=== PATIENT | female | born 2000 | race Caucasian/White ===

== ENCOUNTER 2024-10-23 22:45 | Emergency (ER) | payer MEDICAID, SELFPAY ==
[2024-10-23 22:55] VITALS: BP 123/76; PULSE 76; RESP 16; TEMP 36.3; O2SAT 97; BMI 22.9
--- NOTE | 2024-10-23 23:28 | ED_ITS ---
HPI - General Adult General Chief complaint: Nausea/Vomiting Stated complaint: Diarrhea, vomiting Time Seen by Provider: 10/23/24 23:26 History of Present Illness HPI narrative: Arrives with complaints of N /V/D that started today after beginning to take a medication prescribed by her PMD for heart issues. She is unsure of the name of the medication. Also complaining of 9/10 abdominal pain that she locates all over her abdomen. Alert and oriented, ABCs intact. 24-year-old young woman presenting to the emergency department Begins by noting that whenever she feels her heart transferring blood somewhere she gets tense all over. Has been having 2 weeks of chest pain for which her doctor apparently prescribed her an ?antibiotic?. Clarification that this is Carafate. She denies a history of heartburn. She continues to have chest pain all over and this has been going on for 2 weeks. Has developed all over abdominal pain that seems to coincide with vomiting and diarrhea today. She has had some hematochezia. She feels that she needs an EKG at this point. 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 Related Data Home Medications ?Medication ?Instructions ?Recorded ?Confirmed No Known Home Medications 10/23/2409/27 Allergies Allergy/AdvReac Type Severity Reaction Status Date / Time No Known Drug Allergies Allergy Verified 10/23/24 22:53 Review of Systems Status of ROS: Reports: 6 or more systems reviewed and unremarkable except as noted in History and below [facility] Social History Smoking Status: Unknown if ever smoked Do you use any of these nicotine containing products: None Second hand tobacco smoke exposure: No Non-prescribed substance use: denies use service: No Exam Narrative: Exam Narrative: Appears a little tired. Wearing scrubs. Skin is warm and dry. Well-perfused. No edema. Lungs are clear. Heart in regular rate and rhythm. Diffusely tender but soft abdomen. No peritoneal signs. Const: Vital Signs, click to edit/add: Vital Signs - 24 hr 10/23/24 22:55 Temperature 97.3 F L Pulse Rate [Pulse Oximeter] 76 Respiratory Rate 16 Blood Pressure [Ri ght Upper Arm] 123/76 Pulse Oximetry 97 Oxygen Delivery Me thod Room Air Documenting provider has reviewed patient's vital signs: yes Course Vital Signs Vital signs: Initial Vital Signs Temperature 97.3 F L 10/23/24 22:55 Temperature Source Temporal Artery Scan 10/23/24 22:55 Pulse Rate 76 10/23/24 22:55 Respiratory Rate 16 10/23/24 22:55 Blood Pressure 123/76 10/23/24 22:55 Blood Pressure Mean 91 10/23/24 22:55 Pulse Oximetry 97 10/23/24 22:55 Oxygen Delivery Method Room Air 10/23/24 22:55 Vital Signs Temperature 97.3 F L 10/23/24 22:55 Pulse Rate 76 10/23/24 22:55 Respiratory Rate 16 10/23/24 22:55 Blood Pressure 123/76 10/23/24 22:55 Pulse Oximetry 97 10/23/24 22:55 Oxygen Delivery Method Room Air 10/23/24 22:55 Temperature 97.3 F L 10/23/24 22:55 Pulse Rate 76 10/23/24 22:55 Respiratory Rate 16 10/23/24 22:55 Blood Pressure 123/76 10/23/24 22:55 Pulse Oximetry 97 10/23/24 22:55 Oxygen Delivery Method Room Air 10/23/24 22:55 Medical Decision Making MDM Narrative Medical decision making narrative: Clarifying expectations I think primary need is to confirm that is in normal heart rhythm. She has declined other cares. Otherwise appears to be in usual state of health. Therefore did request EKG. Looks WNL as below. Otherwise vitally well. See patient discharge plan for further discussion Sounds like you and your doctor know each other fairly well. I guess I would follow-up with them for further recommendations. For the diarrhea as long as you are not experiencing a fever, you might try some loperamide if needed, which is available [id number]. Return for marked increase in persistent pain, increasing shortness of breath. ECG Data Attestation: I personally reviewed and interpreted this ECG as follows: (Normal sinus at rate of 75) Discharge Plan Discharge Clinical Impression: Atypical chest pain, Abdominal pain, Irritable bowel Patient Disposition: Home, Self-Care Condition: Stable Additional Instructions: Sounds like you and your doctor know each other fairly well. I guess I would follow-up with them for further recommendations. For the diarrhea as long as you are not experiencing a fever, you might try some loperamide if needed, which is available [id number]. Return for marked increase in persistent pain, increasing shortness of breath. Activity Level: No Restrictions Discharge Diet: Regular Prescriptions: No Action No Known Home Medications Follow Up/Referrals: Cayla Pitt CNP [Primary Care Provider, Family Practice] Stand Alone Forms: [employer] Info Instructions Discharge Comment: Pt walked out after talking with doctor, did not receive her discharge paperwork.
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
--- OUTSIDE RECORDS SUMMARY | 2024-10-24 00:01 | XMS_ITS | Patient Health Record ---
Author Organization [facility] [place] Address [address] [place], [place] [id number] Care Team Providers Care Paddock Judge Name Role Phone Malcom Jamal Primary Care Provider [phone] Jamal العراقي Unavailable Unavailable Reason For Referral No Information Medications Medication SIG (Take, Route, Frequency, Duration) Notes Start Date End Date Status Claritin 10 MG 1 tablet Orally Once a day for 30 day(s) Active Asmanex Twisthaler 1 tab Oral for 14 days Active Vitamin D 1000 UNIT 1 tablet Orally Once a day for 30 day(s) Active Albuterol Sulfate HFA 108 (90 Base) MCG/ACT 2 puffs as needed Inhalation every 6 hrs Active Singulair 10 MG 1 tablet Orally Once a day for 30 day(s) Active Focalin XR 15 MG 1 capsule in the mor sedrick Orally Once a day Active Social History Tobacco Use: Social History Observation Description Date Details (start date - stop date) Never Smoker NA - NA Smoking: Question Answer Notes Are you a: Non-smoker Plan Of Treatment No Information Insurance Providers Payer Name Payer Address Payer Phone Subscriber Number Group Number Insured Name Patient Relationship to Insured Coverage Start Date Coverage End Date [employer] [address] [place] [address] [phone] [id number] Darryl Santo Self - patient is the insured Medical (General) History Medical History History ICD Code asthma
--- OUTSIDE RECORDS SUMMARY | 2024-10-24 00:01 | XMS_ITS | Clinical Summary ---
Author Organization [facility] [facility] Address [address] [place] [address] Care Team Providers Care Medicare Specialist Name Role Phone SweetiePrateekCayla NP Primary Care Provider Allergies Active Allergy Reactions Criticality Noted Date Comments Latex Rash 05/10/2023 Patient reports unsure if the rash was caused by latex in contraceptive device Pollen Extracts *Unknown,Cough 06/01/2023 Medications albuterol HFA (PRO-AIR; VENTOLIN; PROVENTIL) 90 mcg/actuation inhaler Inhale 2 Puffs by mouth every 4 hours if needed for Shortness Of Breath or Wheezing. Active loratadine (Claritin) 10 mg tablet Take 10 mg by mouth once daily. Active docusate sodium (COLACE ORAL) Take 1 Tablet by mouth once daily. Active ondansetron (ZOFRAN ODT) 4 mg disintegrating tabletIndications: Vomiting, unspecified vomiting type, unspecified whether nausea present Place 1 Tablet (4 mg) on the tongue every 8 hours if needed for Nausea/Vomitin g. 10 Tablet 04/30/20 24 Active wheat dextrin (BENEFIBER CLEAR SF, DEXTRIN, ORAL) Take 1 Dose by mouth once daily. Active traZODone (DESYREL) 50 mg tabletIndications: Insomnia, unspecified type Take 1 Tablet (50 mg) by mouth at bedtime. 31 Tablet 1 07/09/19 25 Active Arnuity Ellipta 100 mcg/actuation inhaler Inhale 1 Puff by mouth. 03/05/20 Active fluticasone (50 mcg per actuation) nasal solution (FLONASE) shake liquid and use 2 sprays in each nostril daily 03/05/20 Active melatonin 5 mg tab tablet Take 5 mg by mouth once daily if needed. 03/05/20 Active montelukast 10 mg tablet Take 10 mg by mouth at bedtime if needed. 03/05/20 025 Active sennosides-docusat e (8.6-50 mg) tablet Take 2 Tablets by mouth two times daily. 03/05/20 Active famotidine 20 mg tabletIndications: Periumbilical abdominal pain Take 1 Tablet (20 mg) by mouth 2 times daily if needed for GI Upset. 60 Tablet 2 09/07/19 25 Active FLUoxetine 40 mg capsuleIndications :MDD (major depressive disorder), recurrent severe, without psychosis (HC) Take 1 Capsule (40 mg) by mouth once daily in the morning. 90 Capsule 1 09/18/19 25 Active FLUoxetine 20 mg capsuleIndications :MDD (major depressive disorder), recurrent severe, without psychosis (HC),PTSD (post-traumatic stress disorder) Take 1 Capsule (20 mg) by mouth once daily in the morning. Take along with the 40mg cap for a total daily dose of 60mg daily 30 Capsule 1 09/18/19 25 Active prazosin 1 mg capsuleIndications :Nightmares Take 1 cap by mouth at bedtime for 3 nights, if tolerating well, raise dose to 2mg at bedtime 60 Capsule 1 09/18/19 25 Active sucralfate (Carafate) 1 gram tabletIndications: Acute gastritis, presence of bleeding unspecified, unspecified gastritis type Take 1 Tablet (1 g) by mouth three times daily before meals for 10 days. 30 Tablet 10/23/19 25 025 Active oxyCODONE 5 mg immediate release tabletIndications: Low back pain with bilateral sciatica, unspecified back pain laterality, unspecified chronicity Take 1 Tablet (5 mg) by mouth every 6 hours if needed (breakthrough pain). 12 Tablet 08/15/19 025 Discontinu ed(*Med complete/R egimen complete/L evel of care change) cyclobenzaprine 10 mg tabletIndications: Low back pain with bilateral sciatica, unspecified back pain laterality, unspecified chronicity Take 1 Tablet (10 mg) by mouth every 8 hours if needed for Muscle Spasm. 15 Tablet 09/07/19 25 025 Discontinu ed(*Med complete/R egimen complete/L evel of care change) dexmethylphenidate xR (Focalin XR) 15 mg capsuleIndications :Attention deficit hyperactivity disorder (ADHD), combined type Take 1 Capsule (15 mg) by mouth once daily. 30 Capsule 09/24/19 025 Hospital, Clinic, or Other Facility Administered Medication Ordered Dose Route Frequency Start Date End Date Status levonorgestrel (MIRENA) 21 mcg/24 hours (8 yrs) 52 mg intrauterine device (IUD) 1 DeviceIndications:Abnormal uterine bleeding (AUB) 1 Device IU Q 8 YEARS 06/08/2024 Ac tive Active Problems Problem Noted Date Diagnosed Date Hemorrhoids, internal 09/20/2024 PTSD (post-traumatic stress disorder) 08/13/2024 Liver lesion 08/09/2024 Overview (08/09/2024): F/u MRI liver in mid October 2024. 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 06/07/2024 Cervical cancer screening 05/27/2024 Overview (09/20/2024): 04/2024 UNS 07/2024 UNS/HPV negative Provider Plan: colposcopy Adjustment disorder with mixed emotional feature s 01/25/2023 BV (bacterial vaginosis) 01/19/2023 S/P section 01/19/2023 Overview (01/19/2023): E coli bacteremia POD#1 11/2022 MDD (major depressive disord er), recurrent severe, without psychosis 01/19/2023 ADHD 01/19/2023 Autism spectrum disorder 01/19/2023 Severe episode of recurrent major depressive disorder, without psychotic features 01/19/2023 Overview (05/16/2023): Patient was hospitalized 01/19/23-01/23/23-started on Paxil Anxiety 02/07/2022 Overview (05/16/2023): Zoloft 100 mg daily Mild intermittent asthma 01/19/2017 Seasonal allergies 01/19/2017 Autism spectrum disorder 01/19/2017 Acute adjustment disorder wi mixed anxiety and depressed mood Resolved Problems Problem Noted Date Diagnosed Date Resolved Date Autism spectrum disorder 05/08/2023 Encounters Date Type Department Care Team Description 10/22/2024 12:50 PM CDT Office Visit [facility] [address] [place] [address] Cayla Pitt NP Chest Pain (Chest pain for 2 weeks ) 10/22/2024 Travel 10/19/2024 Travel 10/17/2024 Travel 10/15/2024 1:00 PM CDT Office Visit [facility] [address] [place] [address] Jarrett Amos, [facility] Mental Health Consultants Visit 10/15/2024 9:30 AM CDT - 10/15/2024 11:59 PM CDT Hospital Encounter [facility] [address] [place] [address] Cayla Pitt NP Helms, Colleen G, PT 10/15/2024 Travel 10/09/2024 8:00 AM CDT - 10/09/2024 11:59 PM CDT Hospital Encounter [facility] and [facility] [address] [place] [address] Cayla Pitt NP Helms, Colleen G, PT 10/09/2024 Travel 10/01/2024 8:45 AM CDT - 10/01/2024 11:59 PM CDT Hospital Encounter [facility] [address] [place] [address] Cayla Pitt NP Guildner, Ryan, PTA 10/01/2024 Travel 09/29/2024 Telephone [facility] [address] [place] [address] Cayla Pitt NP Screening (Spine Clinic) 09/27/2024 10:58 AM CDT - 09/27/2024 11:59 PM CDT Hospital Encounter [facility] [address] [place] [address] Cayla Pitt NP Lumbar pain 09/27/2024 Orders Only [facility] [address] [place] [address] Cayla Pitt NP <No scans attached> 09/27/2024 Travel 09/26/2024 Telephone [facility] [address] [place] [address] Jarrett Amos, [employer]ATION 09/25/2024 10:15 AM CDT Office Visit [address] [address] Arielle Flores PsyD, Mental Health Intake 09/25/2024 Travel 09/23/2024 7:30 AM CDT Office Visit [facility] [address] [place] [address] Tila Brown NP Follow Up; Medication Management 09/23/2024 Telephone [facility] [address] [place] [address] Tila Brown NP Medication Management (Pharmacy and medication) 09/23/2024 Travel 09/20/2024 10:10 AM CDT Office Visit [address] [address] Cayla Pitt NP Follow Up (Follow up on back pain and abdominal issues ) 09/20/2024 Travel 09/19/[address] [address] Meche Rooney, Results 09/17/2024 1:00 PM CDT Office Visit [facility] [address] [place] [address] Jarrett Amos, [facility] Mental Health Consultants Visit 09/17/2024 8:44 AM CDT - 09/17/2024 11:59 PM CDT Hospital Encounter [facility] and [facility] [address] [place] [address] Cayla Pitt NP Guildner, Ryan, WILI 09/17/2024 Telephone [facility] [address] [place] [address] Tila Brown NP Follow Up 09/17/2024 Travel 09/15/2024 Travel 09/13/2024 Orders Only [address] [address] Meche Rooney, <No scans attached> 09/13/[address] [address] Meche Rooney, Pap Plan 09/12/2024 9:00 AM CDT Office Visit [facility] [address] [place] [address] Tila Brown NP Medication Management; Follow Up 09/12/2024 Travel 09/10/2024 1:00 PM CDT Nutrition/Dietici an [facility] [address] [place] [address] Medical Nutrition Therapy 09/10/2024 8:45 AM CDT - 09/10/2024 11:59 PM CDT Hospital Encounter [facility] and [facility] [address] [place] [address] Cayla Pitt, Robin Washington, GEAR REPAIR SUPERVISOR 09/10/2024 Travel 09/06/2024 11:00 AM CDT Office Visit [facility] [address] [place] [address] Eva Levy, [facility] Mental Health Consultants Visit 09/06/2024 9:30 AM CDT Office Visit [facility] [address] [place] [address] Cayla Pitt NP Constipation (Follow up) 09/06/2024 Travel 09/03/2024 12:15 PM CDT - 09/03/2024 11:59 PM CDT Hospital Encounter [facility] [address] [place] [address] Cayla Pitt, JUDY Vega, Adelaida Cline, PT 09/03/[address] [address] Tila Brown NP Refill Request ([facility] did not state which medications) 09/03/2024 Telephone [facility] [address] [place] [address] Mundo Haywood MD 09/02/2024 7:47 PM CDT - 09/03/2024 12:44 AM CDT Emergency [facility] [address] [place] [address] Mundo Haywood MD Ran, Renzhong, MD Chronic constipation (Primary Dx); Hepatic lesion; Bladder wall thickening Discharge Disposition: Home Self Care 09/02/2024 7:15 PM CDT Office Visit [facility] [address] [place] [address] Desirae Trujillo MD Abdominal Pain (no BM x 7 days/have tried OTC with no relief); rectal bleeding (x 3 weeks) 09/02/2024 Travel 08/29/2024 Nurse Triage [address] [place] [address] Cayla Pitt NP Constipation 08/28/2024 10:00 AM CDT - 08/28/2024 11:59 PM CDT Hospital Encounter [facility] [address] [place] [address] Meche Rooney DO Abnormal vaginal bleeding 08/28/2024 Travel 08/26/2024 1:00 PM CDT Office Visit [address] [place] [address] Meche Rooney DO Menstrual Problem (Bleeding with IUD ) 08/26/2024 9:22 AM CDT - 08/26/2024 11:59 PM CDT Hospital Encounter [facility] [address] [place] [address] Cayla Pitt NP Helms, Colleen G, PT Strain of lumbar region, initial encounter 08/26/2024 Orders Only [facility] [phone] Meche Rooney DO Lab 08/26/2024 Travel 08/23/2024 11:30 AM CDT Ancillary Procedure [address] [place] [address] 08/23/2024 10:50 AM CDT Office Visit [address] [place] [address] Cayla Pitt NP Follow Up (Back pain ); Concerns (Abdominal bloating/ pain) 08/22/2024 Travel 08/16/2024 10:00 AM CDT Office Visit [place] [address] [place] [address] Eva Levy, [facility] Mental Health Consultants Visit 08/16/2024 Orders Only [facility] [address] [place] [address] Cayla Pitt NP Lab 08/16/2024 Orders Only [facility] [address] [place] [address] Cayla Pitt NP <No scans attached> 08/16/2024 Travel 08/14/2024 10:41 PM CDT - 08/14/2024 11:14 PM CDT Emergency [facility] [address] [place] [address] Juan Antonio Pelayo DO Low back pain with bilateral sciatica, unspecified back pain laterality, unspecified chronicity (Primary Dx) Discharge Disposition: Home Self Care 08/14/2024 11:15 AM CDT Orders Only [address] [address] Lab, [facility] 08/14/[address] [address] Cayla Pitt NP Imaging 08/14/2024 Travel 08/13/2024 11:00 AM CDT Office Visit [facility] [address] [place] [address] Tila Brown NP Mental Health Intake (Medication Consult, Establish care) 08/13/2024 Travel 08/09/2024 8:50 AM CDT Office Visit [address] [address] Cayla Pitt NP Follow Up (Bleeding continues) 08/09/2024 Travel 08/07/2024 Telephone [facility] [address] [place] [address] Tila Brown NP Pre-Visit Intake 08/05/2024 11:00 AM CDT Office Visit [facility] [address] [place] [address] Eva Levy, [facility] Mental Health Consultants Visit 08/05/2024 Travel 08/05/2024 Refill [facility] [address] [place] [address] Daphney Sapp, JUDY Refill Request (Trazodone) 07/26/2024 1:44 PM INSERTER OPERATOR - 07/26/2024 11:59 PM INSERTER OPERATOR Hospital Encounter [facility] [address] [place] [address] Cayla Pitt NP Abdominal pain, generalized 07/26/2024 Travel from Last 3 Months Immunizations Immunization Administration Dates Next Due COVID-19 VACCINE SPIKEVAX (M ODERNA 50MCG/0.5ML) 12YO+ PFS 04/21/2023 COVID-19 vaccine (Moderna 50 mcg/0.5mL) 12YO+ BIVALENT PF, MDV 03/05/2024 COVID-19 vaccine (Pfizer-Bio NTech 30mcg/0.3mL) PF, MDV 12/08/2020 Dtap Unspecified Formulation 12/07/2007, 11/11/2003,2002,10/18,2002 HPV 9 (Gardasil 9) 04/12/2016 Hepatitis A, Unspecified 09/23/2009,12/07/2007 Hepatitis B, Unspecified 11/11/2003,2002 Hib Conjugate, Unspecified 11/11/2003,2002 ,2002 Human Papilloma Virus Vaccine 12/29/2014, 015 Human Papilloma Virus Vaccin e, Unspecified 04/12/2016,12/29/2014,10/02/2014 INFLUENZA, IIV3 PF (AGE >= 6 MO) 03/05/2024 Inactivated Polio Vaccine 12/07/2007,06/2003,2002,08/19 Influenza Virus, Unspecified 02/14/2019, 04/12/2016,04/27/2015,03/12,04/04/2012 Influenza, IIV4 02/21/2023,,03/25/2021,02/28,02/22/2017 MMR 12/07/2007,06/30/2003 Meningococcal B 12/21/2020,10/17/2018 Meningococcal Vaccine (Menactra) 10/17/2018,02/26 Pneumococcal Conj 20-valent (Prevnar 20) 11/01/2021 Pneumococcal conj 7-Valent (Prevnar 7) 0 11/11/2003,2002,2002,08/19 Polio Virus, Unspecified 12/07/2007,06/2003,2002,08/19 Tdap 10/06/2022,03/12/2014 Varicella Vaccine 12/07/2007,06/30/2003 Social History Tobacco Use Types Packs/Day Years Used Date Smoking Tobacco: Never Passive Smoke Exposure: Past Smokeless Tobacco: Never Tobacco Cessation:Counseling Given: Yes Alcohol Use Standard Drinks/Week Comments Not Currently 0 (1 standard drink = 0.6 oz pur e alcohol) PHQ-2 Answer Date Recorded PHQ-2 TOTAL SCORE 6 09/26/2024 Social Connections Answer Date Recorded Do you often feel lonely or isolated from those around you? 0 06/24/2024 Alcohol Use Answer Date Recorded How often do you have a drink containing alcohol ? 0 05/16/2023 How many drinks containing a lcohol do you have on a typical day when you are drinking? 0 05/16/2023 How often do you have five or more drinks on one occasion? 0 05/16/2023 Financial Resource Strain Answer Date R ecorded Difficulty of Paying Living Expenses 3 06/24/2024 Difficulty of Paying Living Expenses Not on file 06/24/2024 Food Insecurity Answer Date Recorded Do you worry your food will run out before you are able to buy more? 1 06/24/2024 Transportation Needs Answer Date Record ed Does lack of transportation keep you from medica l appointments? 1 06/24/2024 Does lack of transportation keep you from work, meetings or getting things that you need? 1 06/24/2024 Housing Stability Answer Date Recorded What is your housing situation today? 1 06/24/2024 Interpersonal Safety Answer Date Record ed Are you being hit, kicked, p ushed or yelled at (see row info)? No 09/02/2024 Interpersonal Safety Abuse 12 - 18 Not on file 09/02/2024 Interpersonal Safety Ambulatory Vulnerability No t on file 09/02/2024 Utilities Answer Date Recorded Do you have trouble paying f or utilities (for example, heat, electricity, water, phone)? 1 06/24/2024 Comments No Sex and Gender Information Value Date Recorded Sex Assigned at Female 06/24/2024 4:45 PM INSERTER OPERATOR Legal Sex Female 5:17 PM CDT Gender Identity Female 06/24/2024 4:45 PM INSERTER OPERATOR Sexual Orientation Not on file Obstetrics History Para Term AB IAB SAB Ectopic Multiple Livin g Live Births 1 1 1 1 1 Date Outcome GA Total Labor Labor/2nd/3rd Weight Sex Type Anes PTL Quita A1 A5 Name Clin 2022 Term 37w 5d 2.8 kg (6 lb 2.8 oz) F CS-LT ranv Epidu ral,G enera l Livin g 6 9 CASTRO ,GIRL [facility] Que Hazel M.D., M.H.A. Complications:Intraamniotic Infection Delivery Location:[facility] ([facility] 03 [facility]) Last Filed Vital Signs Vital Sign Reading Time Taken Comments Blood Pressure 100/48 10/22/2024 1:02 PM CDT Pulse 88 10/22/2024 1:02 PM CDT Temperature 37 C (98.6 F) 09/02/2024 7:57 PM CDT Respiratory Rate 18 09/02/2024 7:57 PM CDT Oxygen Saturation 98% 09/02/2024 11:27 PM CDT Inhaled Oxygen Concentration - - Weight 63 kg (138 lb 14.4 oz) 10/22/2024 1:02 PM CDT Height 165.1 cm (5' 5) 09/02/2024 7:56 PM CDT Body Mass Index 23.11 09/02/2024 7:56 PM CDT Plan of Treatment Upcoming Encounters Date Type Department Care Team (Late st Contact Info) Description 10/24/2024 9:30 AM CDT Office Visit [address] [place] [address] Jaky Boyd PA [address] [place] [address] 10/24/2024 11:00 AM CDT Office Visit [facility] [address] [place] [address] Sergio Carr MD [address] [place] [address] 10/28/2024 10:15 AM CDT Appointment [facility] [address] [place] [address] 10/29/2024 9:30 AM CDT Appointment [facility] [address] [place] [address] Robin Begum, [facility] [address] [address] 10/30/2024 11:00 AM CDT Office Visit [facility] [address] [place] [address] Arielle Flores, PsyD, LP [address] [place] [address] 10/31/2024 9:05 AM CDT Office Visit [facility] Orthopedic[facility] Podiatry [facility] [address] [address] Jayme Prescott MD [address] [place] [address] 11/05/2024 9:30 AM CDT Appointment [facility] [address] [place] [address] Robin Begum, GEAR REPAIR SUPERVISOR [address] [place] [address] 11/08/2024 8:15 AM CDT Procedure Only [address] [address] Meche Rooney DO [address] [place] [address] 11/11/2024 7:30 AM CDT Office Visit [facility] [address] [place] [address] Tila Brown NP [address] [place] [address] 11/12/2024 9:30 AM CDT Appointment [facility] [address] [place] [address] Robin Begum, GEAR REPAIR SUPERVISOR [address] [address] 11/13/2024 10:15 AM CDT Office Visit [address] [address] Arielle Flores PsyD, [address] [address] 11/14/2024 9:00 AM CDT Office Visit [facility] [address] [place] [address] Sergio Carr MD [address] [place] [address] 11/19/2024 9:30 AM CDT Appointment [facility] [address], [place] [address] Adelaida Vega, PT [address], [place] [address] 11/25/2024 11:10 AM CDT Office Visit [address] [address] Cayla Pitt, JUDY [address] [place] [address] 11/26/2024 9:30 AM CDT Appointment [facility] [address] [place] [address] Robin Begum, GEAR REPAIR SUPERVISOR [address] [place] [address] 12/02/2024 9:30 AM CDT Appointment [facility] [address] [place] [address] 12/03/2024 9:30 AM CDT Appointment [facility] [address] [place] [address] Robin Begum, GEAR REPAIR SUPERVISOR [address] [place] [address] 12/04/2024 12:00 PM CDT Office Visit [address] [address] Arielle Flores PsyD, LP [address] [place] [address] 12/10/2024 9:30 AM CDT Appointment [facility] [address] [place] [address] [place] [address] Robin Begum, GEAR REPAIR SUPERVISOR [address] [place] [address] 12/17/2024 9:30 AM CDT Appointment [facility] [address] [place] [address] Adelaida Vega, PT [address] [place] [address] Health Maintenance Due Date Last Done Comments Hepatitis B series for 19+ (3 of 3 - 3-dose series) 01/06/2004 11/11/2003, 2002 HIV for age 15-65 2017 Hepatitis C screening for age 18-79 2020 COVID-19 vaccine series (2023- season) 2024 03/05/2024, 03/05/2024, 04/21/2023, Additional history exists BMI (ht and wt on same day) for age 18+ 08/09/2025 08/09/2024, 06/07/2024, 05/11/2023, Additional history exists Chlamydia for age 16-24 08/26/2025 08/27/19 25, 05/09/2024, 05/24/2023, Additional history exists Depression screening for age 12+ 09/29/2025 09/29/2024, 09/27/2024, 09/26/2024, Additional history exists Pap test for age 21-65 08/27/2027 08/26/2024, 2023 Tetanus booster 10/06/2032 10/06/2022, 03/12/2014 HPV series for age 9-26 Completed 04/12/20 16, 04/12/2016, 12/29/2014, Additional history exists Pneumococcal series for age 6-49 Aged Out 11/01/2021, 11/11/2003, 2002, Additional history exists No longer eligible based on patient's age to complete this topic Tdap Completed 10/06/2022, 03/12/2014 Influenza Vaccine Completed 03/05/2024, , 05/26/2022, Additional history exists Procedures Procedure Name Priority Date/Time Associated Diagnosis Comments MR SPINE LUMBAR WO Routine 09/27/2024 11 :32 AM CDT Lumbar pain AMB CONSULT TO GASTROENTEROLOGY STEFAN 09/16/2024 8:32 PM CDT Abdominal pain, generalized Chronic constipation Rectal bleeding Mucus in stool SCAN-COLONOSCOPY 09/16/2024 11:[address] ABDOMEN PELVIS W STAT 09/02/2024 9 :11 PM CDT URINE STAT 09/02/2024 8:50 PM CDT UA W/ SEDIMENT EXAM REFLEXED PER CRITERIA STAT 09/02/2024 8:50 PM CDT CBC WITH AUTO DIFFERENTIAL STAT 09/02/2024 8:21 PM CDT HEPATIC FUNCTION PANEL STAT 8:21 PM CDT LIPASE STAT 09/02/2024 8:21 PM CDT BASIC METABOLIC PANEL STAT 09/02/2024 8:21 PM CDT CBC WITH AUTO DIFFERENTIAL STAT 09/02/2024 8:21 PM CDT US PELVIS COMPLETE TA AND TV Routine 08/28/2024 10:51 AM CDT Abnormal vaginal bleeding HPV HIGH RISK Routine 08/26/2024 2:02 PM CDT Pap smear of cervix unsatisfactory URINE Routine 08/26/2024 1:30 PM CDT Abnormal vaginal bleeding HYDRAULIC BLOCKER THIN PREP PAP SCREEN IMAGED- Unsuccessful Attempt Routine 08/26/2024 1:20 PM CDT Pap smear for cervical cancer screening GC CHLAMYDIA TRACH PROBE Routine 08/26/2024 1:20 PM CDT Abnormal vaginal bleeding TRICHOMONAS, PAO, AND BACTERIAL VAGINOSIS BY SAMSON Routine 08/26/2024 1:20 PM CDT Abnormal vaginal bleeding XR SPINE LUMBAR 3 VIEWS Routine 08/24/19 11:43 AM CDT Strain of lumbar region, initial encounter OCCULT BLOOD IFOBT STOOL Routine 08/16/2024 10:16 PM CDT Rectal bleeding URINE CULTURE STEFAN 08/14/2024 10:50 PM CDT URINALYSIS MICROSCOPIC STAT 10:50 PM CDT URINE STAT 08/14/2024 10:50 PM CDT UA W/ SEDIMENT EXAM REFLEXED PER CRITERIA STAT 08/14/2024 10:50 PM CDT STOOL PATHOGEN MULTIPLEX PCR PANEL Routine 08/13/2024 10:34 AM CDT Rectal bleeding CT ABDOMEN PELVIS W Routine 07/26/2024 2 :18 PM INSERTER OPERATOR Abdominal pain, generalized from Last 3 Months Results * MR SPINE LUMBAR WO (09/27/2024 11:32 AM CDT) Anatomical Region Laterality Modality Spine, LUMBAR SPINE Magnetic Res onance 09/27/2024 12:2 7 PM CDT Narrative 09/27/2024 12:27 PM CDT For Patients: As a result of the Century Cures Act, medical imaging exams and procedure reports are released immediately into your electronic medical record. You may view this report before your referring provider. If you have questions, please contact your health care provider. Indication: Lumbar pain. Technique: Multiplanar multisequence noncontrast MR images of the lumbar spine. Comparison: Lumbar spine radiographs 08/23/2024. Findings: Slight leftward lumbar curvature. The lumbar lordosis is preserved. Vertebral heights are maintained. No acute fracture or spondylolisthesis. No T1 hypointense lesions or marrow edema. Normal conus terminates at L1. T12-L1 through L3-4: No spinal canal or neural foraminal narrowing. L4-5: Shallow disc bulge. Minimal facet arthropathy. Minimal spinal canal narrowing. Mild narrowing of the lateral recesses. No neural foraminal narrowing. L5-S1: Shallow disc bulge. Minimal facet arthropathy. Minimal spinal canal and lateral recess narrowing. No neural foraminal narrowing. Impression: 1. Mild lumbar spondylosis without spinal canal or neural foraminal stenosis. 2. Mild narrowing of the lateral recesses at L4-5. 3. Slight leftward lumbar curvature. Dictated by Bakari Ramos MD @ 09/27/2024 12:27:00 PM (Electronically Signed) Procedure Note Bakari Ramos MD - 09/27/2024 For Patients: As a result of the Cures Act, medical imagingexams and procedure reports are released immediately into your electronicmedical record. You may view this report before your referring provider.If you have questions, please contact your health care provider. Indication: Lumbar pain. Technique: Multiplanar multisequence noncontrast MR images of the lumbar spine. Comparison: Lumbar spine radiographs 08/23/2024. Findings: Slight leftward lumbar curvature. The lumbar lordosis is preserved.Vertebral heights are maintained. No acute fracture or spondylolisthesis.No T1 hypointense lesions or marrow edema. Normal conus terminates atL1. T12-L1 through L3-4: No spinal canal or neural foraminal narrowing. L4-5: Shallow disc bulge. Minimal facet arthropathy. Minimal spinal canalnarrowing. Mild narrowing of the lateral recesses. No neural foraminalnarrowing. L5-S1: Shallow disc bulge. Minimal facet arthropathy. Minimal spinal [place] lateral recess narrowing. No neural foraminal narrowing. Impression: 1. Mild lumbar spondylosis without spinal canal or neural foraminalstenosis. 2. Mild narrowing of the lateral recesses at L4-5. 3. Slight leftward lumbar curvature. Dictated by Bakari Ramos MD @ 09/27/2024 12:27:00 PM (Electronically Signed) us Cayla Pitt POSTDOCTORAL SCIENTIST MR Final Result * SCAN-COLONOSCOPY (09/16/2024 11:30 AM CDT) Narrative Procedure Note Saba Parekh MD - 09/16/2024 10:53 AM CDT [facility] [id number] [place] [address], [address], [place] [address] Patient Name: Darryl Castro Gender: Female Exam Date: 09/16/2024 Visit Number: [id number] Age: 24 Years 2 Months Date of : 2000 Attending MD: Saba Parekh MD Medical Record#: [id number] ----- Procedure: Colonoscopy Indications: Abdominal pain Rectal bleeding Referring MD: Mikala Quiros POSTDOCTORAL SCIENTIST Primary MD: Cayla Pitt READING PROFESSOR Medications: Admitting Medications: 0.9% Normal Saline at TKO Ondansetron Hydrochloride (Zofran) given 4mg by IV Intra Procedure Medications: Patient received monitored anesthesia care. Complications: No immediate complications Procedure: An examination of the heart and lungs was performed and found to be withinacceptable limits. The patient was therefore deemed a reasonablecandidate for endoscopy and monitored anesthesia care. The risks, benefits and plan of the procedure were discussed with thepatient and/or patient food service sales representatives and all questions were answered. After obtaining informed consent, the patient received monitoredanesthesia care and I passed the scope without difficulty via the rectum to the ileum. The appendiceal orifice and ic valve were identified. The scope wasretroflexed during the examination The quality of the prep was good(Miralax/Gatorade Double Prep). This was a complete examination throughout the entire colon. Findings: Normal finding. Location - ileum - entire colon. Hemorrhoids. Internal hemorrhoids without bleeding. Impression: Internal hemorrhoids Plan Repeat colonoscopy at age 47. We will attempt to contact you at appropriate intervals via U.S. mail. Wemay not be able to find you or contact you at that time, therefore youshould know that the responsibility for following our recommendation restswith you. If you don't hear from us at the time your procedure is due,please contact our office to schedule an appointment. If your contactinformation should change, please contact our office so that we can updateyour records. Electronically signed by: Saba Parekh MD 09/16/2024 Medications: Medication Dose Sig Description PRN Status PRN Reason Comments albuterol sulfate HFA 90 mcg/actuation aerosol inhaler 90 mcg inhale 2puff by inhalation route every 4 - 6 hours as needed N bupropion HCl UNKNOWN take 1 tablet by oral route every day N taking asdirected fluoxetine UNKNOWN take 3 capsule by oral route every day in the morningN taking as directed Allergies: Medication Name Ingredient Reaction Comment NO KNOWN ALLERGIES NO KNOWN DRUG ALLERGIES Vital Signs: Date Time Systolic Diastolic Height Weight BMI 09/16/2024 11:14am 115 60 65 in 134.99 22.50 Race: White Preferred Language: Tunisian cc: Cayla Pitt READING PROFESSOR cc: Mikala Quiros NP [facility] [phone] us Saba Parekh MD OTHER Final Result * CT ABDOMEN PELVIS W (09/02/2024 9:11 PM CDT) Only the most recent of2 resultswithin the time period is included. Anatomical Region Laterality Modality Abdomen, Pelvis, AORTA, LIVER, SPLEEN Computed Tomography 09/02/2024 9:43 PM CDT Impressions 09/02/2024 9:43 PM CDT 1. No bowel obstruction. 2. Mild fullness of the azame-cuahpho-glcq-left renal collecting systems, nonspecific. No obstructing calculi appreciated. Clinical correlation recommended. 3. Questionable minimal bladder wall thickening. Correlate for cystitis. 4. Prominent colonic stool burden. 5. Grossly unchanged hepatic hypodensities, incompletely characterized on this examination. Please note that all CT scans at this facility use dose modulation, iterative reconstruction, and/or weight-based dosing when appropriate to reduce radiation dose to as low as reasonably achievable. Dictated by Etienne Guido MD @ 09/02/2024 9:43:23 PM (Electronically Signed) Narrative 09/02/2024 9:43 PM CDT For Patients: As a result of the Cures Act, medical imaging exams and procedure reports are released immediately into your electronic medical record. You may view this report before your referring provider. If you have questions, please contact your health care provider. INDICATION: Generalized abdominal pain and constipation. Concern for small bowel obstruction. TECHNIQUE: CT abdomen and pelvis acquired with 100 cc Omnipaque 300 IV contrast. COMPARISON: CT abdomen pelvis 07/26/2024. FINDINGS: Lower chest: Unremarkable. Liver: Redemonstrated hepatic hypodensities are grossly unchanged compared to the previous examination. No acute hepatic abnormality. Gallbladder and bile ducts: Unremarkable. Pancreas: Unremarkable. Spleen: Unremarkable. Adrenal glands: Unremarkable. Kidneys: Unchanged regions of linear hypoattenuation within the right kidney, likely reflecting scarring. Mild fullness of the right greater than left renal collecting systems. No urinary calculi are appreciated. GI tract: No bowel obstruction. Prominent colonic stool burden. No suspicious bowel wall thickening. Normal appendix. Vasculature: No abdominal aortic aneurysm. Grossly patent vasculature. Lymph nodes: No suspicious lymphadenopathy. Peritoneum/Abdominal Wall: No ascites or pneumoperitoneum. No acute abdominal wall abnormality. Pelvis: Questionable minimal bladder wall thickening. Left adnexal cyst measuring 4.1 cm grossly unchanged. Intrauterine device grossly in satisfactory position. Bones: No acute abnormality. Procedure Note Etienne Guido MD - 09/02/2024 For Patients: As a result of the Cures Act, medical imagingexams and procedure reports are released immediately into your electronicmedical record. You may view this report before your referring provider.If you have questions, please contact your health care provider. INDICATION: Generalized abdominal pain and constipation. Concern for small bowelobstruction. TECHNIQUE: CT abdomen and pelvis acquired with 100 cc Omnipaque 300 IV contrast. COMPARISON: CT abdomen pelvis 07/26/2024. FINDINGS: Lower chest: Unremarkable. Liver: Redemonstrated hepatic hypodensities are grossly unchanged comparedto the previous examination. No acute hepatic abnormality. Gallbladder and bile ducts: Unremarkable. Pancreas: Unremarkable. Spleen: Unremarkable. Adrenal glands: Unremarkable. Kidneys: Unchanged regions of linear hypoattenuation within the rightkidney, likely reflecting scarring. Mild fullness of the right greaterthan left renal collecting systems. No urinary calculi are appreciated. GI tract: No bowel obstruction. Prominent colonic stool burden. Nosuspicious bowel wall thickening. Normal appendix. Vasculature: No abdominal aortic aneurysm. Grossly patent vasculature. Lymph nodes: No suspicious lymphadenopathy. Peritoneum/Abdominal Wall: No ascites or pneumoperitoneum. No acuteabdominal wall abnormality. Pelvis: Questionable minimal bladder wall thickening. Left adnexal cystmeasuring 4.1 cm grossly unchanged. Intrauterine device grossly insatisfactory position. Bones: No acute abnormality. IMPRESSION: 1. No bowel obstruction. 2. Mild fullness of the pmsjv-rutnxdb-osce-left renal collecting systems,nonspecific. No obstructing calculi appreciated. Clinical correlationrecommended. 3. Questionable minimal bladder wall thickening. Correlate for cystitis. 4. Prominent colonic stool burden. 5. Grossly unchanged hepatic hypodensities, incompletely characterized onthis examination. Please note that all CT scans at this facility use dose modulation,iterative reconstruction, and/or weight-based dosing when appropriate toreduce radiation dose to as low as reasonably achievable. Dictated by Etienne Guido MD @ 09/02/2024 9:43:23 PM (Electronically Signed) us Mundo Haywood MD CT Final Result * URINALYSIS W REFLEX MICROSCOPIC IF POSITIVE (09/02/2024 8:50 PM CDT) Only the most recent of2 resultswithin the time period is included. COLOR Yellow Yellow Color 09/02/2024 9:05 PM CDT [facility] CLARITY Clear Clear Clarity 09/02/2024 9:05 PM [facility] SPECIFIC GRAVITY,URINE 1.015 1.010, 1.015, 1.020, 1.025 09/02/2024 9:05 PM [facility] PH,URINE 7.0 6.0, 7.0, 8.0, 5.5, 6.5, 7.5, 8.5 09/02/2024 9:05 PM [facility] UROBILINOGEN, QUALITATIVE Normal Normal EU/dl 09/02/2024 9:05 PM [facility] PROTEIN, URINE Negative Negative mg/dL 09/02/2024 9:05 PM [facility] GLUCOSE, URINE Negative Negative mg/dL 09/02/2024 9:05 PM [facility] KETONES,URINE Negative Negative mg/dL 09/02/2024 9:05 PM [facility] BILIRUBIN,URI NE Negative Negative 09/02/2024 9:05 PM [facility] OCCULT BLOOD,URINE Negative Negative 09/02/2024 9:05 PM [facility] NITRITE Negative Negative 09/02/2024 9:05 PM [facility] LEUKOCYTE ESTERASE Negative Negative 09/02/2024 9:05 PM [facility] Urine URINE SPECIMEN / Unknown Non-Blood / Unknown 09/02/2024 8:50 PM CDT 09/02/2024 9:01 PM CDT us Mundo Haywood MD URINE Final Result [facility] [address] [place] [address] * URINE (09/02/2024 8:50 PM CDT) Only the most recent of3 resultswithin the time period is included. ,URIN E Negative Negative 09/02/2024 9:06 PM T [facility] Urine URINE SPECIMEN / Unknown Non-Blood / Unknown 09/02/2024 8:50 PM CDT 09/02/2024 9:01 PM CDT Mundo Haywood MD URINE Final Result [facility] [address] [place] [address] * (ABNORMAL) CBC WITH AUTO DIFFERENTIAL (09/02/2024 8:21 PM CDT) WHITE BLOOD COUNT 7.9 4.5 - 11.0 thou/cu mm 09/02/2024 8:27 PM T [facility] RED BLOOD COUNT 3.99(L) 4.00 - 5.20 mil/cu mm 09/02/2024 8:27 PM [facility] HEMOGLOBIN 10.8(L) 12.0 - 16.0 g/dL 09/02/2024 8:27 PM [facility] HEMATOCRIT 34.9 33.0 - 51.0 % 09/02/2024 8:27 PM [facility] MCV 88 80 - 100 fL 09/02/2024 8:27 PM [facility] MCH 27.1 26.0 - 34.0 pg 09/02/2024 8:27 PM [facility] MCHC 30.9(L) 32.0 - 36.0 g/dL 09/02/2024 8:27 PM [facility] RDW 14.3 11.5 - 15.5 % 09/02/2024 8:27 PM [facility] PLATELET COUNT 210 140 - 440 thou/cu mm 09/02/2024 8:27 PM [facility] MPV 9.7 6.5 - 11.0 fL 09/02/2024 8:27 PM [facility] % NEUT 59.7 % 09/02/2024 8:27 PM [facility] % LYMPH 27.3 % 09/02/2024 8:27 PM [facility] % MONO 6.7 % 09/02/2024 8:27 PM CDT [facility] % EOS 5.9 % 09/02/2024 8:27 PM CDT [facility] % BASO 0.4 % 09/02/2024 8:27 PM CDT [facility] ABSOLUTE NEUTROPHILS 4.7 1.7 - 7.0 thou/cu mm 09/02/2024 8:27 PM CDT [facility] ABSOLUTE LYMPHOCYTES 2.2 0.9 - 2.9 thou/cu mm 09/02/2024 8:27 PM CDT [facility] ABSOLUTE MONOCYTES 0.5 <0.9 thou/cu mm 09/02/2024 8:27 PM T [facility] ABSOLUTE EOSINOPHILS 0.5(H) <0.5 thou/cu mm 09/02/2024 8:27 PM CDT [facility] ABSOLUTE BASOPHILS 0.0 <0.3 thou/cu mm 09/02/2024 8:27 PM CDT [facility] Blood BLOOD SPECIMEN / Unknown Venipuncture / Unknown 09/02/2024 8:21 PM CDT 09/02/2024 8:24 PM CDT us Mundo Haywood MD HEMATOLOGY Final Result Performing Organization Address City/[facility]/ZIP Co de Phone Number [facility] [address] [place] [address] * LIPASE (09/02/2024 8:21 PM CDT) LIPASE 26.1 13.0 - 60.0 IU/L 09/02/2024 8:43 PM CDT [facility] Blood BLOOD SPECIMEN / Unknown Venipuncture / Unknown 09/02/2024 8:21 PM CDT 09/02/2024 8:24 PM CDT Mundo Haywood MD CHEMISTRY Final Result [facility] [address] [place] [address] * (ABNORMAL) HEPATIC FUNCTION PANEL (09/02/2024 8:21 PM CDT) Pathologist [facility] ALBUMIN 4.3 4.0 - 4.9 g/dL 09/02/2024 8:43 PM CDT [facility] PROTEIN,TOTAL 6.6 6.0 - 8.0 g/dL 09/02/2024 8:43 PM CDT [facility] BILIRUBIN,TOTAL 0.2 0.0 - 1.2 mg/dL 09/02/2024 8:43 PM T [facility] BILIRUBIN,DIRECT 0.1 0.0 - 0.2 mg/dL 09/02/2024 8:43 PM T [facility] BILIRUBIN,INDIRE CT 0.1(L) 0.2 - 0.8 mg/dL 09/02/2024 8:43 PM T [facility] ALK PHOSPHATASE 98 35 - 104 IU/L 09/02/2024 8:43 PM T [facility] ALT (SGPT) 7(L) 10 - 35 IU/L 09/02/2024 8:43 PM T [facility] AST (SGOT) 15 10 - 35 IU/L 09/02/2024 8:43 PM [facility] Blood BLOOD SPECIMEN / Unknown Venipuncture / Unknown 09/02/2024 8:21 PM CDT 09/02/2024 8:24 PM CDT us Mundo Haywood MD CHEMISTRY Final Result [facility] [address] [place] [address] * BASIC METABOLIC PANEL (09/02/2024 8:21 PM CDT) [facility] SODIUM 141 136 - 145 mmol/L 09/02/2024 8:43 PM CDT [facility] POTASSIUM 3.6 3.5 - 5.1 mmol/L 09/02/2024 8:43 PM [facility] CHLORIDE 106 98 - 107 mmol/L 09/02/2024 8:43 PM [facility] CO2,TOTAL 26 22 - 29 mmol/L 09/02/2024 8:43 PM [facility] ANION GAP 9 5 - 18 09/02/2024 8:43 PM [facility] GLUCOSE 89 70 - 99 mg/dL 09/02/2024 8:43 PM [facility] CALCIUM 9.1 8.8 - 10.4 mg/dL 09/02/2024 8:43 PM [facility] Comment: Reference ranges for this test were updated on 04/02/2024 to reflect our healthy population more accurately. Reference range changes are not retroactively applied to results, but previous results using the same methodology can be interpreted in the context of the new reference range. BUN 15 6 - 20 mg/dL 09/02/2024 8:43 PM [facility] CREATININE 0.86 0.50 - 0.90 mg/dL 09/02/2024 8:43 PM [facility] BUN/CREAT RATIO 17 10 - 20 8:43 PM [facility] eGFR >90 >90 mL/min/1.7 3m2 09/02/2024 8:43 PM [facility] Comment:As of 2021, eG FR is calculated by the CKD-EPI creatinine equation without race adjustment. eGFR can be influenced by muscle mass, exercise, and diet. The reported eGFR is an estimation only and is only applicable if the renal function is stable. Blood BLOOD SPECIMEN / Unknown Venipuncture / Unknown 09/02/2024 8:21 PM CDT 09/02/2024 8:24 PM CDT us Mundo Haywood MD CHEMISTRY Final Result [facility] [address] [place] [address] * US PELVIS COMPLETE TA AND TV (08/28/2024 10:51 AM CDT) Anatomical Region Laterality Modality Pelvis Ultrasound 08/28/2024 10:5 9 AM CDT Impressions 08/28/2024 10:59 AM CDT 1. 4.2 cm dominant follicle left ovary. No evidence of torsion. Right ovary normal. 2. Uterus and endometrium normal. IUD is positioned centrally. Dictated by Sherri Hernandez MD @ 08/28/2024 10:59:17 AM (Electronically Signed) Narrative 08/28/2024 10:59 AM CDT For Patients: As a result of the Cures Act, medical imaging exams and procedure reports are released immediately into your electronic medical record. You may view this report before your referring provider. If you have questions, please contact your health care provider. INDICATION: Abnormal vaginal bleeding TECHNIQUE: Ultrasound pelvis transabdominal and transvaginal for better assessment or to better visualize the endometrium. Real-time sonographic images with spectral and color Doppler imaging of the ovaries were obtained. COMPARISON: CT abdomen pelvis 07/26/2024 FINDINGS: Uterus: 7.3 x 4.5 x 3.6 cm. Normal echotexture of the myometrium. No masses. Endometrium: 3 mm in thickness. Centrally positioned IUD no sign of endometrial mass or fluid. Right ovary: 3.0 x 3.2 x 1.6 cm. Small follicles and a 2 cm dominant follicle. No ovarian or adnexal masses. Normal arterial and venous blood flow. Left ovary: 4.6 x 4.6 x 3.1 cm. Small follicles and a 4.2 cm dominant follicle. This potentially could represent the 3.6 cm dominant follicle noted on the prior CT scan. No ovarian or adnexal masses. Normal arterial and venous blood flow. Cul-de-sac: No significant free fluid. Procedure Note Harish Hernandez MD - 08/28/2024 For Patients: As a result of the Cures Act, medical imagingexams and procedure reports are released immediately into your electronicmedical record. You may view this report before your referring provider.If you have questions, please contact your health care provider. INDICATION: Abnormal vaginal bleeding TECHNIQUE: Ultrasound pelvis transabdominal and transvaginal for better assessment orto better visualize the endometrium. Real-time sonographic images withspectral and color Doppler imaging of the ovaries were obtained. COMPARISON: CT abdomen pelvis 07/26/2024 FINDINGS: Uterus: 7.3 x 4.5 x 3.6 cm. Normal echotexture of the myometrium. Nom[place]. Endometrium: 3 mm in thickness. Centrally positioned IUD no sign ofendometrial mass or fluid. Right ovary: 3.0 x 3.2 x 1.6 cm. Small follicles and a 2 cm dominantfollicle. No ovarian or adnexal masses. Normal arterial and venous bloodflow. Left ovary: 4.6 x 4.6 x 3.1 cm. Small follicles and a 4.2 cm dominantfollicle. This potentially could represent the 3.6 cm dominant folliclenoted on the prior CT scan. No ovarian or adnexal masses. Normal arterialand venous blood flow. Cul-de-sac: No significant free fluid. IMPRESSION: 1. 4.2 cm dominant follicle left ovary. No evidence of torsion. Rightovary normal. 2. Uterus and endometrium normal. IUD is positioned centrally. Dictated by Sherri Hernandez MD @ 08/28/2024 10:59:17 AM (Electronically Signed) us Meche Rooney DO Final Result * HPV HIGH RISK (08/26/2024 2:02 PM CDT) TYPE 16 Negative Negative 09/17/2024 2:22 PM CDT [facility] TYPE 18 Negative Negative 09/17/2024 2:22 PM CDT [facility] OTHER HIGH RISK TYPES Negative Negative 09/17/2024 2:22 PM CDT [facility] Tissue (Cervical) Non-Blood / Unknown 08/26/2024 2:02 PM CDT 09/16/2024 2:03 PM [facility]T [facility] - 09/17/2024 2:22 PM CDT HPV types 16, 18, 31, 33, 35, 39, 45, 51, 52, 56, 58, 59, 66 and 68 DNA were undetectable or below the pre-set threshold. Methodology: Aliya Janes 4800 HPV Test Meche Rooney DO MICROBIOLOGY Final Result Performing Organization Address [facility] Co de Phone Number [facility] [address] [place] [address], [place] * (ABNORMAL) TRICHOMONAS, PAO, AND BACTERIAL VAGINOSIS BY SAMSON (08/26/2024 1:20 PM CDT) PAO SPECIES Positive(A) Negative 08/28/19 3:42 AM CDT [facility] PAO GLABRATA Negative Negative 08/27/2024 3:42 AM CDT [facility] TRICHOMONAS VVA Negative Negative 3:42 AM CDT [facility] BACTERIAL VAGINOSIS Positive(A) Negative 08/27/2024 3:42 AM CDT [facility] Other VAGINAL SWAB / Unknown Non-Blood / Unknown 08/26/2024 1:20 PM CDT 08/26/2024 1:57 PM CDT Meche Rooney DO MICROBIOLOGY Final Result Performing Organization Address [facility] Co de Phone Number [facility] [address] [place] [address], [place] * HYDRAULIC BLOCKER THIN PREP PAP SCREEN IMAGED (08/26/2024 1:20 PM CDT) - Unsuccessful Attempt Case Report Gynecologic Cytology Report Case: [id number] Authorizing Provider: Meche Rooney Collected: 08/26/2024 1320 DO Noah Ordering Location: [facility] Received: 08/26/2024 [facility] First Screen: Varsha Delgado Rescreen: [facility] [place] Specimen: HYDRAULIC BLOCKER ThinPrep Vial Screening, Cervical 09/13/2024 12:12 PM CDT [facility] INTERPRETATION/R ESULT UNSATISFACTORY FOR EVALUATION (UNS) (none) 09/13/2024 12:12 PM CDT [facility] at 1211 CDT Comment: Note is made of the patient's previous Unsatisfactory pap. The recommendation is to repeat Unsatisfactory pap in two to four months. In addition, consideration may be given to ordering a HPV test. If desired fax an add-on order to [phone] before 10/09/24. SPECIMEN ADEQUACY Specimen processed and examined, but unsatisfactory for evaluation of epithelial abnormality because of: Scant cellularity 09/13/2024 12:12 PM CDT [facility] Date of LMP unknown 09/13/2024 12:12 PM CDT [facility] Last Pap Date 05/09/24 09/13/2024 12:12 PM CDT [facility] Last Pap Result UNS 12:12 PM CDT [facility] Abnormal Pap or [place] Bx in last 5 years No 09/13/2024 12:12 PM CDT [facility] Menstrual Status Irregular Periods 09/13/2024 12:12 PM CDT [facility] [place] Bx Done Today No 09/13/2024 12:12 PM CDT [facility] Additional Information None given 09/13/2024 12:12 PM CDT [facility] Comment: Cytology is screened at [facility] - [address], [place] [address] [facility] - [address] [place] [address] and [facility] - [address] [facility] [address] [place] [address] Interpreted at [facility] - [address], [place] [address] Automated Review Successful 09/14/19 12:12 PM CDT [facility] Comment:Specimen processed s uccessfully by automated statistical methods professor device, [employer] System, [email or web address] Note The pap test is a screening technique, not a diagnostic procedure. It is used primarily to screen for squamous cancers and precursor lesions. Published studies have shown that it is subject to both false negative and false positive results. The pap test should not be used as the sole means to diagnose or exclude pre-malignant and malignant lesions. 09/13/2024 12:12 PM CDT [facility] Other (Cervical) Non-Blood / Unknown 08/26/2024 1:20 PM CDT 08/26/2024 1:57 PM CDT [employer] DO PATHOLOGY/CYTO LOGY Final Result [facility] [address] [address], [place] * GC CHLAMYDIA TRACH PROBE (08/26/2024 1:20 PM CDT) CHLAMYDIA PROBE Negative 4:19 AM CDT [facility] TRAL LABORATORY N GONORRHOEAE PROBE Negative 08/27/2024 4:19 AM CDT [facility] Other VAGINAL SWAB / Unknown Non-Blood / Unknown 08/26/2024 1:20 PM CDT 08/26/2024 1:57 PM CDT [employer] MICROBIOLOGY Final Result Performing Organization Address City/[facility]/ZIP Co de Phone Number [facility] [address] [address], [place] * XR SPINE LUMBAR 3 VIEWS (08/23/2024 11:43 AM CDT) Anatomical Region Laterality Modality LUMBAR SPINE Computed Radiogr aphy 08/23/2024 12:0 6 PM CDT Impressions 08/23/2024 12:06 PM CDT Mild disc narrowing L5-S1. At times this can be a variant of normal. Otherwise unremarkable lumbar spine. Dictated by Sherri Hernandez MD @ 08/23/2024 12:06:59 PM (Electronically Signed) Narrative 08/23/2024 12:06 PM CDT For Patients: As a result of the Cures Act, medical imaging exams and procedure reports are released immediately into your electronic medical record. You may view this report before your referring provider. If you have questions, please contact your health care provider. INDICATION: Strain of lumbar region TECHNIQUE: Lumbar spine 3 view. COMPARISON: None FINDINGS: Bones: Alignment is normal. No fractures or significant bone lesions. No spondylolysis or spondylolisthesis. Joints: Mild disc narrowing L5-S1. Remaining disc spaces and facets are unremarkable. Soft tissues: Jewelry overlies the low lumbar region in the AP view. Procedure Note Harish Hernandez MD - 08/23/2024 For Patients: As a result of the Cures Act, medical imagingexams and procedure reports are released immediately into your electronicmedical record. You may view this report before your referring provider.If you have questions, please contact your health care provider. INDICATION: Strain of lumbar region TECHNIQUE: Lumbar spine 3 view. COMPARISON: None FINDINGS: Bones: Alignment is normal. No fractures or significant bone lesions. Nospondylolysis or spondylolisthesis. Joints: Mild disc narrowing L5-S1. Remaining disc spaces and facets areunremarkable. Soft tissues: Jewelry overlies the low lumbar region in the AP view. IMPRESSION: Mild disc narrowing L5-S1. At times this can be a variant of normal.Otherwise unremarkable lumbar spine. Dictated by Sherri Hernandez MD @ 08/23/2024 12:06:59 PM (Electronically Signed) Cayla Pitt POSTDOCTORAL SCIENTIST GENERAL IMAGING Final Result * OCCULT BLOOD IFOBT STOOL (08/16/2024 10:16 PM CDT) STOOL BLOOD ,IFOBT Negative Negative 08/19/2024 6:31 PM CDT [facility] [employer] Stool STOOL SPECIMEN / Unknown Non-Blood / Unknown 08/16/2024 10:16 PM CDT 08/16/2024 10:16 PM CDT Cayla Pitt POSTDOCTORAL SCIENTIST LABORATORY Final Result [facility] [address] [place] [id number], [place] * (ABNORMAL) URINALYSIS MICROSCOPIC (08/14/2024 10:50 PM CDT) RBC 0-2 0-2, None Seen /HPF 08/14/2024 11:00 PM CDT [facility] WBC 6-10(A) 0-2, 3-5, None Seen /HPF 08/14/2024 11:00 PM CDT [facility] BACTERIA Many(A) None Seen, Rare, Few Bacteria/ HPF 08/14/2024 11:00 PM CDT [facility] EPITHELIAL CELLS Many(A) None Seen, Few Epi/HPF 08/14/2024 11:00 PM CDT [facility] Mucus Present 08/14/2024 11:00 PM CDT [facility] AMORPHOUS Present(A) (none) 08/14/2024 11:00 PM CDT [facility] Urine URINE SPECIMEN / Unknown Non-Blood / Unknown 08/14/2024 10:50 PM CDT 08/14/2024 10:52 PM CDT us Juan Antonio Pelayo DO URINE Final Resul t Performing Organization Address City/[facility]/ZIP Co de Phone Number [facility] [address] [place] [address] * URINE CULTURE (08/14/2024 10:50 PM CDT) CULTURE 10-50,000 CFU/mL of multiple organisms, probable contaminants 08/15/2024 8:14 PM CDT [facility] Urine URINE SPECIMEN / Unknown Non-Blood / Unknown 08/14/2024 10:50 PM CDT 08/14/2024 10:52 PM CDT Juan Antonio Pelayo DO MICROBIOLOGY Final Resul t [facility] [address] [place] [id number], [place] * STOOL PATHOGEN MULTIPLEX PCR PANEL (08/13/2024 10:34 AM CDT) Campylobacter NOT Detected NOT Detected 08/15/2024 11:09 AM CDT [facility] Salmonella NOT Detected NOT Detected 08/15/2024 11:09 AM CDT [facility] Shigella NOT Detected NOT Detected 08/15/2024 11:09 AM CDT [facility] Vibrio NOT Detected NOT Detected 08/15/2024 11:09 AM CDT [facility] Yersinia Enterocolitica NOT Detected NOT Detected 08/15/2024 11:09 AM CDT [facility] Shiga Toxin 1 NOT Detected NOT Detected 08/15/2024 11:09 AM CDT [facility] Shiga Toxin 2 NOT Detected NOT Detected 08/15/2024 11:09 AM CDT [facility] Norovirus NOT Detected NOT Detected 08/15/2024 11:09 AM CDT [facility] Rotavirus NOT Detected NOT Detected 08/15/2024 11:09 AM CDT [facility] Stool STOOL SPECIMEN / Unknown Non-Blood / Unknown 08/13/2024 10:34 AM CDT 08/14/2024 10:34 AM CDT [facility] LABORATORY - 08/15/2024 11:09 AM CDT This test is a Culture Independent Diagnostic Test (CIDT) therefore isolates are not available for susceptibility testing. Antibiotic treatment is often contraindicated and may be detrimental in cases of enteric infections, thus routine susceptibility testing is not recommended. us Cayla Pitt NP MICROBIOLOGY Final Result [facility] [address] [place] [address], from Last 3 [place] [id number] Advance Directives * Full Code (Latest Code Status on File) Date Activated Date Inactivated Comments 05/16/2023 12:39 AM 05/30/2023 7:27 PM Question Answer Comments Code Status Discussion: Other * Full Code Date Activated Date Inactivated Comments 05/01/2023 10:05 AM 05/09/2023 9:42 PM Question Answer Comments Code Status Discussion: Reviewed Preferences * Full Code Date Activated Date Inactivated Comments 04/30/2023 10:12 PM 05/01/2023 10:05 AM Question Answer Comments Code Status Discussion: Unable to Assess Preferences, Provider to review later * Full Code Date Activated Date Inactivated Comments 01/23/2023 8:36 AM 01/23/2023 4:07 PM Question Answer Comments Code Status Discussion: Reviewed Preferences * Full Code Date Activated Date Inactivated Comments 01/19/2023 12:44 PM 01/23/2023 8:36 AM Question Answer Comments Code Status Discussion: Unable to Assess Preferences, Provider to review later Care Teams Medicare Specialist Relationship Specialty Start Date End Date Cayla Pitt NP [address] [place] [address] ANNI MENENDEZ [id number] PCP - General Nurse Practitioner - Family 02/22/23
== END 2024-10-24 00:36 | disposition home or self-care (01) ==
PROVIDERS: Emergency Provider Family Medicine; PCP Nurse Practitioner Family
DX: R07.9 Chest pain, unspecified (principal); K58.9 Irritable bowel syndrome, unspecified
CPT/HCPCS: 93005; 99284